=== PATIENT | female | born 1980 | race Caucasian/White ===

== ENCOUNTER 2016-08-31 21:00 | Outpatient (CLI) | payer BC ==
[~2016-08-31 21:00] MED LIST: BPR100T PO; CEPH-38 PO; FRS325T PO; IBP600T1 PO; NUVARING; OMEP20CA12 PO; PREN1TAB39 PO; SCR1T1 PO
--- OUTSIDE RECORDS SUMMARY | 2016-08-31 21:12 | XMS REPORT | Continuity of Care Document ---
Author Author [facility] Organization [facility] Address Unknown Phone Unavailable Allergies Active Description Code Type Severity Reaction Onset Reported/Identified Relationship to Patient Clinical Status Yes codeine Drug Allergy 10/27/2009 Yes codeine Drug Allergy N/A N/A 10/27/2009 Yes codeine [id number] Drug Allergy Moderate RASH,HIVES; N/V 06/19/2010 Medications Problems Date Dx Coded Attending Type Code Diagnosis Diagnosed By 10/27/2009 FAN MONAHAN APRN A V22.0 PC NORMAL FIRST 10/27/2009 RAMONITA MONAHAN APRNIDI A V22.0 PC NORMAL FIRST 10/27/2009 V22.0 PC NORMAL FIRST 10/27/2009 LUIZ STEPHENSON EARL A V22.0 PC NORMAL FIRST 10/27/2009 RAJOFE STEPHENSON EARL A V22.0 PC NORMAL FIRST 10/27/2009 GLO CROCKETT DO K V22.0 PC NORMAL FIRST 10/27/2009 JACKIE CROCKETT DOA K V22.0 PC NORMAL FIRST 10/27/2009 RAMONITA MONAHAN APRNIDI A V22.0 PC NORMAL FIRST 10/27/2009 ARAVIND KING APRN V22.0 PC NORMAL FIRST 10/28/2009 TANIYA STEPHENSON FAN A 733.90 OSTEOPENIA 10/28/2009 TANIYA STEPHENSON FAN A 733.90 OSTEOPENIA 10/28/2009 733.90 OSTEOPENIA 10/28/2009 LUIZ STEPHENSON EARL A 733.90 OSTEOPENIA 10/28/2009 VIRGINIAE SEEMA EARL A 733.90 OSTEOPENIA 10/28/2009 JACKIE CROCKETT DOA K 733.90 OSTEOPENIA 10/28/2009 CROCKETT JACKIE JEANA K 733.90 OSTEOPENIA 10/28/2009 TANIYA STEPHENSON FAN A 733.90 OSTEOPENIA 10/28/2009 ARAVIND KING APRN N 733.90 OSTEOPENIA 01/11/2010 TANIYAFAN Simon APRN A 698.0 Pruritus Ani 01/11/2010 TANIYAFAN Simon APRN A 698.0 Pruritus Ani 01/11/2010 698.0 Pruritus Ani 01/11/2010 LUIZ SEEMA EARL A 698.0 Pruritus Ani 01/11/2010 VIRGINIAE HOSPICE CONSULTANT, EARL A 698.0 Pruritus Ani 01/11/2010 CROCKETT DO, GLO K 698.0 Pruritus Ani 01/11/2010 CROCKETT DO, GLO K 698.0 Pruritus Ani 01/11/2010 TANIYAFAN Simon APRN A 698.0 Pruritus Ani 01/11/2010 GUTIERREZ ARAVIND WILCOX APRN N 698.0 Pruritus Ani 03/07/2010 TANIYAFAN Simon APRN A 530.81 ESOPHAGEAL REFLUX 03/07/2010 FAN MONAHAN APRN A 530.81 ESOPHAGEAL REFLUX 03/07/2010 530.81 ESOPHAGEAL REFLUX 03/07/2010 LUIZ QUINNAurora EARL A 530.81 ESOPHAGEAL REFLUX 03/07/2010 VIRGINIAE HOSPICE CONSULTANT, EARL A 530.81 ESOPHAGEAL REFLUX 03/07/2010 CROCKETT DO, GLO K 530.81 ESOPHAGEAL REFLUX 03/07/2010 CROCKETT DO, GLO K 530.81 ESOPHAGEAL REFLUX 03/07/2010 TANIYAFAN Simon APRN A 530.81 ESOPHAGEAL REFLUX 03/07/2010 GUTIERREZ ANDREWMABEL HOSPICE CONSULTANTARAVIND N 530.81 ESOPHAGEAL REFLUX 06/21/2010 Ot 285.9 06/21/2010 Ot 599.0 06/21/2010 Ot 646.62 06/21/2010 Ot 648.22 06/21/2010 Ot 664.11 06/21/2010 Ot V27.0 07/31/2010 FAN MONAHAN APRN 616.10 VAGINITIS 07/31/2010 FAN MONAHAN APRN V24.2 visit for: exam 07/31/2010 FAN MONAHAN APRN V25.02 Contraceptives 07/31/2010 FAN MONAHAN APRN 616.10 VAGINITIS 07/31/2010 TANIYA HOSPICE CONSULTANT, FAN A V24.2 visit for: exam 07/31/2010 TANIYAAurora STEPHENSON FAN A V25.02 Contraceptives 07/31/2010 616.10 VAGINITIS 07/31/2010 V24.2 visit for: exam 07/31/2010 V25.02 Contraceptives 07/31/2010 LUIZ QUINNN, EARL A 616.10 VAGINITIS 07/31/2010 LUIZ QUINNN, EARL A V24.2 visit for: exam 07/31/2010 LUIZ QUINNN, EARL A V25.02 Contraceptives 07/31/2010 VIRGINIAE HOSPICE CONSULTANT, EARL A 616.10 VAGINITIS 07/31/2010 VIRGINIAE HOSPICE CONSULTANT, EARL A V24.2 visit for: exam 07/31/2010 LUIZ QUINNAurora EARL A V25.02 Contraceptives 07/31/2010 CROCKETT JACKIE JEANA K 616.10 VAGINITIS 07/31/2010 GLO CROCKETT DO K V24.2 visit for: exam 07/31/2010 KEIRA JEAN GLO K V25.02 Contraceptives 07/31/2010 CROCKETT DO GLO K 616.10 VAGINITIS 07/31/2010 CROCKETT DO GLO K V24.2 visit for: exam 07/31/2010 KEIRA JEAN GLO K V25.02 Contraceptives 07/31/2010 TANIYA QUINNFAN Simon A 616.10 VAGINITIS 07/31/2010 FAN MONAHAN APRN A V24.2 visit for: exam 07/31/2010 FAN MONAHAN APRN A V25.02 Contraceptives 07/31/2010 GUTIERREZTREY WILCOX APRN ARAVIND N 616.10 VAGINITIS 07/31/2010 ARAVIND KING APRN N V24.2 visit for: exam 07/31/2010 ARAVIND KING APRN N V25.02 Contraceptives 01/26/2011 FAN MONAHAN APRN A V05.3 HEP B (ADULT) DX 01/26/2011 FAN MONAHAN APRN A V05.3 HEP B (ADULT) DX 01/26/2011 V05.3 HEP B (ADULT) DX 01/26/2011 LUIZ STEPHENSON, EARL A V05.3 HEP B (ADULT) DX 01/26/2011 LUIZ QUINNN, EARL A V05.3 HEP B (ADULT) DX 01/26/2011 CROCKETT DO, GLO K V05.3 HEP B (ADULT) DX 01/26/2011 CROCKETT DO, GLO K V05.3 HEP B (ADULT) DX 01/26/2011 TANIYA STEPHENSON, FAN A V05.3 HEP B (ADULT) DX 01/26/2011 BRENDA WILCOX APRN, ARAVIND N V05.3 HEP B (ADULT) DX 05/08/2012 TANIYA QUINNN, FAN A V04.81 FLU DX (3 YRS AND ABOVE, IM) 05/08/2012 TANIYA QUINNN, FAN A V04.81 FLU DX (3 YRS AND ABOVE, IM) 05/08/2012 V04.81 FLU DX (3 YRS AND ABOVE, IM) 05/08/2012 LUIZ STEPHENSON, EARL A V04.81 FLU DX (3 YRS AND ABOVE, IM) 05/08/2012 LUIZ QUINNN, EARL A V04.81 FLU DX (3 YRS AND ABOVE, IM) 05/08/2012 CROCKETT DO, GLO K V04.81 FLU DX (3 YRS AND ABOVE, IM) 05/08/2012 CROCKETT DO, GLO K V04.81 FLU DX (3 YRS AND ABOVE, IM) 05/08/2012 TANIYA STEPHENSON, FAN A V04.81 FLU DX (3 YRS AND ABOVE, IM) 05/08/2012 BRENDA WILCOX APRN, ARAVIND N V04.81 FLU DX (3 YRS AND ABOVE, IM) 04/22/2013 TANIYA QUINNN, FAN A 626.4 IRREGULAR MENSTRUAL CYCLE 04/22/2013 TANIYA HOSPICE CONSULTANT, FAN A 626.4 IRREGULAR MENSTRUAL CYCLE 04/22/2013 VIRGINIAE HOSPICE CONSULTANT, EARL A 626.4 IRREGULAR MENSTRUAL CYCLE 04/22/2013 RAJBELIAE HOSPICE CONSULTANT, EARL A 626.4 IRREGULAR MENSTRUAL CYCLE 04/22/2013 CROCKETT DO GLO K 626.4 IRREGULAR MENSTRUAL CYCLE 04/22/2013 CROCEKTT DO GLO K 626.4 IRREGULAR MENSTRUAL CYCLE 04/22/2013 TANIYA QUINNN, FAN A 626.4 IRREGULAR MENSTRUAL CYCLE 04/22/2013 BRENDA MORALESMABEL STEPHENSON ARAVIND N 626.4 IRREGULAR MENSTRUAL CYCLE 05/05/2013 TRISTAN MCCORMICK, GUSTAVO Garcia Ot 789.01 ABDOMINAL PAIN, RIGHT UPPER QUADRANT 08/04/2013 TANIYA QUINNN, FAN A V73.81 HPV SCREENING 08/04/2013 TANIYA HOSPICE CONSULTANT, FAN A V76.10 BREAST CANCER SCREENING 08/04/2013 TANIYA QUINNN, FAN A V76.2 CERVICAL CANCER SCREENING (PAP SMEAR) 08/04/2013 LUIZ HOSPICE CONSULTANT, EARL A V73.81 HPV SCREENING 08/04/2013 LUIZ HOSPICE CONSULTANT, EARL A V76.10 BREAST CANCER SCREENING 08/04/2013 RAJBELIAE HOSPICE CONSULTANT, EARL A V76.2 CERVICAL CANCER SCREENING (PAP SMEAR) 08/04/2013 LUIZ HOSPICE CONSULTANT, EARL A V73.81 HPV SCREENING 08/04/2013 LUIZ QUINNN, EARL A V76.10 BREAST CANCER SCREENING 08/04/2013 LUIZ QUINNN, EARL A V76.2 CERVICAL CANCER SCREENING (PAP SMEAR) 08/04/2013 CROCKETT DO GLO K V73.81 HPV SCREENING 08/04/2013 CROCKETT DO GLO K V76.10 BREAST CANCER SCREENING 08/04/2013 CROCKETT , GLO K V76.2 CERVICAL CANCER SCREENING (PAP SMEAR) 08/04/2013 CROCKETT DO GLO K V73.81 HPV SCREENING 08/04/2013 CROCKETT DO GLO K V76.10 BREAST CANCER SCREENING 08/04/2013 CROCKETT DO GLO K V76.2 CERVICAL CANCER SCREENING (PAP SMEAR) 08/04/2013 TANIYA SEEMA, FAN A V73.81 HPV SCREENING 08/04/2013 TANIYA HOSPICE CONSULTANT, FAN A V76.10 BREAST CANCER SCREENING 08/04/2013 TANIYA HOSPICE CONSULTANT, FAN A V76.2 CERVICAL CANCER SCREENING (PAP SMEAR) 08/04/2013 FRANKI KING APRNCY N V73.81 HPV SCREENING 08/04/2013 FRANKI KING APRNCY N V76.10 BREAST CANCER SCREENING 08/04/2013 FRANKI KING APRNCY N V76.2 CERVICAL CANCER SCREENING (PAP SMEAR) 09/23/2013 VIRGINIAE HOSPICE CONSULTANT, EARL A 381.81 EUSTACHIAN TUBE DYSFUNCTION 09/23/2013 [place] HOSPICE CONSULTANT, EARL A 388.70 OTALGIA 09/23/2013 RAJOTTE HOSPICE CONSULTANT, EARL A 381.81 EUSTACHIAN TUBE DYSFUNCTION 09/23/2013 RAJOTTE HOSPICE CONSULTANT, EARL A 388.70 OTALGIA 09/23/2013 CROCKETT DO, GLO K 381.81 EUSTACHIAN TUBE DYSFUNCTION 09/23/2013 CROCKETT DO, GLO K 388.70 OTALGIA 09/23/2013 CROCKETT DO, GLO K 381.81 EUSTACHIAN TUBE DYSFUNCTION 09/23/2013 CROCKETT DO, GLO K 388.70 OTALGIA 09/23/2013 TANIYA HOSPICE CONSULTANT, FAN A 381.81 EUSTACHIAN TUBE DYSFUNCTION 09/23/2013 TANIYA HOSPICE CONSULTANT, FAN A 388.70 OTALGIA 09/23/2013 GUTIERREZTREY WILCOX HOSPICE CONSULTANT, ARAVIND N 381.81 EUSTACHIAN TUBE DYSFUNCTION 09/23/2013 GUTIERREZTREY WILCOX HOSPICE CONSULTANT, ARAVIND N 388.70 OTALGIA 04/28/2014 VIRGINIAE HOSPICE CONSULTANT, EARL A 462 PHARYNGITIS ACUTE 04/28/2014 VIRGINIAE HOSPICE CONSULTANT, EARL A 780.50 SLEEP DISTURBANCE, UNSPECIFIED 04/28/2014 CROCKETT DO, GLO K 462 PHARYNGITIS ACUTE 04/28/2014 CROCKETT DO, GLO K 780.50 SLEEP DISTURBANCE, UNSPECIFIED 04/28/2014 CROCKETT DO, GLO K 462 PHARYNGITIS ACUTE 04/28/2014 CROCKETT DO, GLO K 780.50 SLEEP DISTURBANCE, UNSPECIFIED 04/28/2014 TANIYA HOSPICE CONSULTANT, FAN A 462 PHARYNGITIS ACUTE 04/28/2014 TANIYA HOSPICE CONSULTANT, FAN A 780.50 SLEEP DISTURBANCE, UNSPECIFIED 04/28/2014 GUTIERREZ CASHERO HOSPICE CONSULTANT, ARAVIND N 462 PHARYNGITIS ACUTE 04/28/2014 GUTIERREZ CASHERO HOSPICE CONSULTANT, ARAVIND N 780.50 SLEEP DISTURBANCE, UNSPECIFIED 05/26/2014 CROCKETT DO, GLO K 785.1 PALPITATIONS 05/26/2014 CROCKETT DO, GLO K 785.1 PALPITATIONS 05/26/2014 TANIYA HOSPICE CONSULTANT FAN A 785.1 PALPITATIONS 05/26/2014 BRENDA WILCOX APRN ARAVIND N 785.1 PALPITATIONS 06/03/2014 Ot 733.90 06/03/2014 Ot V22.0 06/03/2014 Ot V28.89 06/03/2014 Ot 790.22 06/03/2014 Ot 733.90 06/03/2014 Ot 737.30 06/04/2014 Ot 733.90 06/04/2014 Ot V22.0 06/04/2014 Ot V28.89 06/04/2014 Ot 790.22 06/04/2014 Ot 733.90 06/04/2014 Ot 737.30 06/23/2014 Ot 733.90 06/23/2014 Ot V22.0 06/23/2014 Ot V28.89 06/23/2014 Ot 790.22 06/23/2014 Ot 733.90 06/23/2014 Ot 737.30 06/23/2014 GABE DEEYL A UTILIZATION MANAGEMENT NURSE Ot 780.50 06/23/2014 LUIZ EARL A UTILIZATION MANAGEMENT NURSE Ot 785.1 07/19/2014 LUIZ EARL A UTILIZATION MANAGEMENT NURSE Ot 780.50 07/19/2014 LUIZ EARL A UTILIZATION MANAGEMENT NURSE Ot 785.1 09/02/2014 GABE DEEYL A UTILIZATION MANAGEMENT NURSE Ot 780.50 SLEEP DISTURBANCE NOS 09/02/2014 GABE DEEYL A UTILIZATION MANAGEMENT NURSE Ot 785.1 PALPITATIONS 09/09/2014 FAN MONAHAN APRN A V72.31 ACCESS CONTROL OFFICER EXAM, ROUTINE 09/09/2014 BRENDA WILCOX APRN ARAVIND N V72.31 ACCESS CONTROL OFFICER EXAM, ROUTINE 10/11/2014 ARAVIND KING APRN N 465.9 ACUTE UPPER RESPIRATORY INFECTIONS OF UNSPECIFIED SITE 10/11/2014 ARAVIND KING APRN N 477.9 ALLERGIC RHINITIS CAUSE UNSPECIFIED 10/11/2014 ARAVIND KING APRN N 786.2 COUGH 01/26/2016 Ot 733.90 BONE CARTILAGE DIS NOS 01/26/2016 Ot 737.30 IDIOPATHIC SCOLIOSIS 01/26/2016 Ot 780.50 SLEEP DISTURBANCE NOS 01/26/2016 Ot 785.1 PALPITATIONS 02/13/2016 Ot 733.90 BONE CARTILAGE DIS NOS 02/13/2016 Ot 737.30 IDIOPATHIC SCOLIOSIS 02/13/2016 Ot 780.50 SLEEP DISTURBANCE NOS 02/13/2016 Ot 785.1 PALPITATIONS 08/30/2016 Ot 733.90 BONE CARTILAGE DIS NOS 08/30/2016 Ot 737.30 IDIOPATHIC SCOLIOSIS 08/30/2016 Ot 780.50 SLEEP DISTURBANCE NOS 08/30/2016 Ot 785.1 PALPITATIONS Procedures Code Description [place] [address] URINE TEST (IN-HOUSE) 04/22/2013 32892 PAP SMEAR 2013 Q0091 PAP SMEAR OBTAIN SMEAR 08/04/2013 02680 THERAPUTIC INJ SQ/IM 09/23/2013 J1030 DEPO MEDROL 40 MG INJ 09/23/2013 84694 ROUTINE VENIPUNCTURE 05/26/2014 47650 EKG, TRACING (IN-HOUSE) 05/26/2014 43795 THERAPUTIC INJ SQ/IM 05/26/2014 J1040 DEPO MEDROL 80 MG INJ 05/26/2014 2372970 GFR CALC (RESULT ONLY) 05/26/2014 71691 CMP 05/26/2014 52277 MAGNESIUM 2013 59977 T4 FREE 2013 45019 T3 TOTAL 2013 16072 TSH 05/26/2014 45899 MEASURE BLOOD OXYGEN LEVEL 05/27/2014 65306 HOLTER MONITOR 09751 EVENT MONITOR 02/2014 15420 THERAPUTIC INJ SQ/IM 10/11/2014 J1040 DEPO MEDROL 80 MG INJ 10/11/2014 Results Encounters ACCT No. Visit Date/Time Discharge Status Pt. Type Provider Facility Loc./Unit Complaint [id number] 06/28/2014 08:02:00 2014 23:59:59 CLS Outpatient EARL DEE [facility] CARD PALPITATIONS [id number] 05/05/2013 09:07:00 2012 13:08:00 DIS Emergency GUSTAVO HUDSON MD [facility] ER ABD PAIN [id number] 08/31/2016 21:00:00 ACT Outpatient FAUSTO REID APRN [facility] SLEEP SNORING,JASS [id number] 09/03/2014 08:00:00 Document Registration [id number] 06/03/2014 08:44:00 Document Registration [id number] 05/16/2012 08:00:00 Document Registration [id number] 06/19/2010 10:46:00 Document Registration [id number] 04/06/2010 07:41:00 Document Registration [id number] 01/26/2010 09:37:00 Document Registration [id number] 11/02/2009 13:02:00 Document Registration [id number] 04/08/2009 13:30:00 Document Registration
== END 2016-09-01 05:45 | disposition home or self-care (01) ==
LOC: SLEEP 21:00
PROVIDERS: ATTEND Nurse Practitioner Family
DX: G47.33 Obstructive sleep apnea (adult) (pediatric) (principal)
CPT/HCPCS: 95810

== ENCOUNTER → 2022-04-13 | Outpatient (CLI) | payer BC ==
--- NOTE | 2022-04-13 12:08 | Diagnostic Imaging Report ---
Indication: Routine screening. No prior mammograms are available for comparison. This is a baseline study. 2-D and 3-D bilateral screening mammography was performed with CAD. CAD is utilized. The current study was also evaluated with a Computer Aided Detection (CAD) system. Both breasts are heterogeneously dense, limiting the sensitivity of mammography. There is a density in the superior left breast that appears somewhat prominent. This appears to be laterally located on the CC view. Additional views are recommended. Right breast is unremarkable. No malignant-appearing microcalcifications are seen. Axillae are unremarkable. IMPRESSION: BI-RADS 0 Left breast density. Additional views are recommended for further evaluation. ACR BI-RADS Category 0: Incomplete. (Needs additional imaging evaluation). Result letter will be mailed to the patient. Note: At least 10% of breast cancer is not imaged by mammography. Dictated by: Dictated on workstation # [id number]
== END ==
LOC: RAD 08:57
PROVIDERS: ATTEND Nurse Practitioner Family
DX: Z12.31 Encounter for screening mammogram for malignant neoplasm of breast (principal)
CPT/HCPCS: 77063; 77067

== ENCOUNTER → 2022-04-25 | Outpatient (CLI) | payer BC ==
--- NOTE | 2022-04-25 15:08 | Diagnostic Imaging Report ---
INDICATION: Left breast density. Patient presents for additional views. COMPARISON: Correlation is made with the prior screening mammogram from 04/13/2022. TECHNIQUE: Unilateral left 2D and 3D diagnostic mammography was performed. This includes spot compression CC and ML views as well as conventional 90 degree lateral views. FINDINGS: The additional views show some mild residual density in the upper outer left breast approximately 9 cm from the nipple. This most likely represents fibroglandular tissue. No discrete mass is detected. IMPRESSION: There is some residual density in the upper outer left breast 9 cm from the nipple which has the appearance of fibroglandular tissue. Even so, directed sonographic interrogation of this area is recommended and will be performed today. ACR BI-RADS Category 0: Incomplete. (Needs additional imaging evaluation). Result letter will be mailed to the patient. Note: At least 10% of breast cancer is not imaged by mammography. Dictated by: Dictated on workstation # [id number]
--- NOTE | 2022-04-25 15:16 | Diagnostic Imaging Report ---
INDICATION: Left breast density. COMPARISON: Correlation is made with the diagnostic mammogram from earlier this same day and the screening mammogram from 04/13/2022. TECHNIQUE/FINDINGS: Sonographic interrogation of the upper outer left breast was performed. No sonographic abnormality is seen. No solid or cystic mass is detected. IMPRESSION: No sonographic abnormality is detected. The patient may return to routine annual screening mammography. ACR BI-RADS Category 1: Negative. Result letter will be mailed to the patient. Note: At least 10% of breast cancer is not imaged by mammography. Dictated by: Dictated on workstation # [id number]
== END ==
LOC: RAD 14:02
PROVIDERS: ATTEND Nurse Practitioner Family
DX: N64.89 Other specified disorders of breast (principal)
CPT/HCPCS: 76642; 77065; G0279

== ENCOUNTER → 2022-07-17 | Outpatient (CLI) | payer BC | LOC: SLEEP 13:41 | PROVIDERS: ATTEND Nurse Practitioner Family | DX: G47.10 Hypersomnia, unspecified (principal) | CPT/HCPCS: G0399 ==